=== PATIENT | female | born 1950 | race Caucasian/White ===

== ENCOUNTER 2020-08-07 15:30 | Emergency (ER) | payer MEDICARE, OTHER ==
[~2020-08-07] VITALS: Ht 157.5 cm; Wt 67.1 kg
[2020-08-07 16:30] LABS: BASOPHILS ABSOLUTE AUTO 0.05 K/mm3 (0.00-0.23); BASOPHILS PERCENT AUTO 1 % (0-2); EOSINOPHILS ABSOLUTE AUTO 0.15 K/mm3 (0.00-0.68); EOSINOPHILS PERCENT AUTO 2 % (0-6); Hematocrit 41.5 % (33.0-51.0); Hemoglobin 13.3 g/dL (11.5-16.0); IMMATURE GRAN ABSOLUTE AUTO 0.04 K/mm3 (0.00-0.10); IMMATURE GRAN PERCENT AUTO 1 % (0-1); LYMPHOCYTES ABSOLUTE AUTO 1.96 K/mm3 (0.84-5.20); LYMPHOCYTES PERCENT AUTO 23 % (21-46); MONOCYTES ABSOLUTE AUTO 1.05 K/mm3 (0.16-1.47); MONOCYTES PERCENT AUTO 12 % (4-13); Mean Corpuscular HGB 32.7 pg (26.0-34.0); Mean Corpuscular Volume 102 fL (80-100); Mean Platelet Volume 9.1 fL (9.1-12.4); NEUTROPHILS ABSOLUTE AUTO 5.47 K/mm3 (1.96-9.15); NEUTROPHILS PERCENT AUTO 63 % (41-73); Platelet Count 259 K/mm3 (150-400); RDW Coefficient Variation 12.8 % (11.7-14.2); RDW Standard Deviation 47.9 fL (35.1-46.3); Red Blood Cell Count 4.07 M/mm3 (3.80-5.20); White Blood Cell Count 8.72 K/mm3 (4.00-11.30)
[2020-08-07 16:42] LABS: Anion Gap 6 mmol/L (6-16); Blood Urea Nitrogen 14 mg/dL (8-24); Bun/Creatinine Ratio 26.6 (12.0-20.0); C-REACTIVE PROTEIN, EXT RANGE 0.486 mg/dL (0.000-0.300); CO2, Blood 26 mmol/L (21-32); Calcium, Blood 8.6 mg/dL (8.5-10.1); Chloride, Blood 114 mmol/L (98-108); Creatinine, Blood 0.53 mg/dL (0.40-1.00); Glomerular Filtration Rate >60 (60-); Glucose, Blood 155 mg/dL (70-99); Potassium, Blood 3.8 mmol/L (3.5-5.5); Sodium, Blood 146 mmol/L (136-145)
[2020-08-07] MEDS ORDERED: Percocet 5-3251 EACH PO ×2 (16:58→16:59)
[2020-08-07] MEDS ORDERED: NAPR500 PO (16:58)
== END 2020-08-07 17:20 | disposition home or self-care (01) ==
LOC: ER 15:30
PROVIDERS: Physician Assistant
DX: M17.12 Unilateral primary osteoarthritis, left knee (principal); Z87.891 Personal history of nicotine dependence
CPT/HCPCS: 36415; 80048; 85025; 85651; 86140; 99283; A9270-GY

== ENCOUNTER 2021-07-09 01:44 | Observation (INO) | payer MEDICARE, OTHER ==
[~2021-07-09] VITALS: Ht 157.5 cm; Wt 71.9 kg
[~2021-07-09 01:44] MED LIST: NAPR500 PO; Percocet 5-3251 EACH PO
[2021-07-09] MEDS ORDERED: MYRBETRIQ25 MG (02:02)
[2021-07-09 04:02] LABS: SARS-Cov-2 (COVID-19) PCR, MMC NEGATIVE (NEGATIVE)
[2021-07-09 05:07] LABS: BASOPHILS ABSOLUTE AUTO 0.04 K/mm3 (0.00-0.23); BASOPHILS PERCENT AUTO 1 % (0-2); EOSINOPHILS ABSOLUTE AUTO 0.02 K/mm3 (0.00-0.68); EOSINOPHILS PERCENT AUTO 0 % (0-6); Hematocrit 36.9 % (33.0-51.0); Hemoglobin 12.3 g/dL (11.5-16.0); IMMATURE GRAN ABSOLUTE AUTO 0.03 K/mm3 (0.00-0.10); IMMATURE GRAN PERCENT AUTO 0 % (0-1); LYMPHOCYTES ABSOLUTE AUTO 0.97 K/mm3 (0.84-5.20); LYMPHOCYTES PERCENT AUTO 12 % (21-46); MONOCYTES ABSOLUTE AUTO 0.35 K/mm3 (0.16-1.47); MONOCYTES PERCENT AUTO 4 % (4-13); Mean Corpuscular HGB Conc 33.3 g/dL (31.5-36.5); Mean Corpuscular Volume 99 fL (80-100); Mean Platelet Volume 9.1 fL (9.1-12.4); NEUTROPHILS ABSOLUTE AUTO 6.98 K/mm3 (1.96-9.15); NEUTROPHILS PERCENT AUTO 83 % (41-73); Platelet Count 234 K/mm3 (150-400); RDW Coefficient Variation 12.5 % (11.7-14.2); RDW Standard Deviation 46.1 fL (35.1-46.3); Red Blood Cell Count 3.73 M/mm3 (3.80-5.20); White Blood Cell Count 8.39 K/mm3 (4.00-11.30)
--- NOTE | 2021-07-09 05:33 | NUR ---
PT ADMITTED FROM ER FOR LACERATION TO RT WRIST INVOLIVING TENDON. PT A&O X4. VS WNL. ABLE TO TRANSFER INDEPENDENTLY. PT REPORTS PAIN IS TOLERABLE. RT ARM WRAPPED IN DRESSING WITH SPLINT IN PLACE. PT ABLE TO WIGGLE FINGERS. CAP REFILL WNL. DENIES N/T. PT NPO. IVF INFUSING PER EMAR. PLAN FOR OR LATER TODAY FOR I&D.
[2021-07-09 05:34] LABS: Alanine Aminotransfer (ALT/SGP 16 U/L (12-78); Albumin, Blood 3.5 g/dL (3.4-5.0); Albumin/Globulin Ratio 1.5 (0.8-1.8); Alk Phos 44 U/L (50-136); Anion Gap 8 mmol/L (6-16); Aspartate Aminotrans (AST/SGOT 20 U/L (12-37); Bilirubin, Total 0.4 mg/dL (0.1-1.0); Blood Urea Nitrogen 13 mg/dL (8-24); Bun/Creatinine Ratio 28.5 (12.0-20.0); CO2, Blood 24 mmol/L (21-32); Calcium, Blood 7.3 mg/dL (8.5-10.1); Chloride, Blood 109 mmol/L (98-108); Creatinine, Blood 0.46 mg/dL (0.40-1.00); Globulin, Blood 2.4 g/dL (2.2-4.0); Glomerular Filtration Rate >60 (60-); Glucose, Blood 103 mg/dL (70-99); Potassium, Blood 3.6 mmol/L (3.5-5.5); Sodium, Blood 141 mmol/L (136-145); Total Protein, Blood 5.9 g/dL (6.4-8.2)
--- NOTE | 2021-07-09 14:58 | NUR ---
RECEIVED PT FROM PACU. EDYTA WRAP DRESSING IN PLACE, CDI. PT ABLE TO WIGGLE FINGERS AND GOOD CAP REFILL. PT TO BE TRANSFERRED TO [facility] FOR MORE EXTENSIVE SURGERY. DETERMINED BY SURGEON THAT THE PATIENT NEEDS TO SEE A HAND SURGEON. DR. ANDREWS AT [facility] TO PERFORM SURGERY TODAY. PT TO BE DRIVEN TO [facility] BY HER . TO SHADER AND TONER NEEDED PRESCRIPTIONS WELL.
--- NOTE | 2021-07-09 16:12 | NUR ---
PT ARRIVED. IV DC'D. WRITTEN PRESCRIPTIONS GIVEN TO TO FILL. PT AND LEFT FOR MAXX. REPORT TO BE CALLED TO MAXX BACON.
--- NOTE | 2021-07-13 14:55 | NUR ---
07/13/21 1455 Joanne Mcdonald VERIFICATIONS: EDIT CHART.
== END 2021-07-09 16:02 | disposition short-term general hospital (02) ==
LOC: ER 01:44 → SURS 01:45
PROVIDERS: Emergency Medicine; ADMIT Internal Medicine
DX: S61.511A Laceration without foreign body of right wrist, initial encounter (principal); S65.111A Laceration of radial artery at wrist and hand level of right arm, initial encounter; S64.21XA Injury of radial nerve at wrist and hand level of right arm, initial encounter; S66.821A Laceration of other specified muscles, fascia and tendons at wrist and hand level, right hand, initial encounter; Z20.822 Contact with and (suspected) exposure to COVID-19; Z87.39 Personal history of other diseases of the musculoskeletal system and connective tissue; W26.8XXA Contact with other sharp object(s), not elsewhere classified, initial encounter
CPT/HCPCS: 12002; 36415; 73110; 80053; 85025; 96365-59; 96375-59; 99285-25; G0378; J0171; J0690; J1100; J2405; J2704; J3010; J7030; J7120; U0004

== ENCOUNTER → 2022-12-28 | Outpatient (CLI) | payer MEDICARE, OTHER ==
[~2022-12-28] MED LIST changes: +MYRBETRIQ25 MG
== END | disposition home or self-care (01) ==
LOC: LAB SHORT 11:54
PROVIDERS: Physician Assistant Medical
DX: R11.0 Nausea (principal); R19.7 Diarrhea, unspecified
CPT/HCPCS: 87338

== ENCOUNTER 2023-06-04 10:32 | Day surgery (SDC) | payer MEDICARE, OTHER ==
[~2023-06-04] VITALS: Ht 157.5 cm; Wt 67.3 kg
[2023-06-04] MEDS ORDERED: ACYC400 PO (10:55)
[2023-06-04 12:40] VITALS: BP 157/77
== END 2023-06-04 12:53 | disposition home or self-care (01) ==
LOC: ORSCSDS 10:32
PROVIDERS: Specialist
PROC: 0DB58ZX Excision of Esophagus, Via Natural or Artificial Opening Endoscopic, Diagnostic (ICD-10-PCS; principal; 2023-06-04 12:30)
PROC: 0DBE8ZX Excision of Large Intestine, Via Natural or Artificial Opening Endoscopic, Diagnostic (ICD-10-PCS; principal; 2023-06-04 12:30)
PROC: 0DB98ZX Excision of Duodenum, Via Natural or Artificial Opening Endoscopic, Diagnostic (ICD-10-PCS; principal; 2023-06-04 12:30)
PROC: 0DBC8ZX Excision of Ileocecal Valve, Via Natural or Artificial Opening Endoscopic, Diagnostic (ICD-10-PCS; principal; 2023-06-04 12:30)
PROC: 0DBP8ZX Excision of Rectum, Via Natural or Artificial Opening Endoscopic, Diagnostic (ICD-10-PCS; principal; 2023-06-04 12:30)
DX: R19.4 Change in bowel habit (principal); R11.0 Nausea; R19.5 Other fecal abnormalities; K62.5 Hemorrhage of anus and rectum; R14.0 Abdominal distension (gaseous); K64.8 Other hemorrhoids; K57.30 Diverticulosis of large intestine without perforation or abscess without bleeding; K52.9 Noninfective gastroenteritis and colitis, unspecified; Z98.84 Bariatric surgery status; Z79.899 Other long term (current) drug therapy
CPT/HCPCS: 88305; J2704; J7120

== ENCOUNTER 2025-05-29 09:32 | Emergency (ER) | payer MEDICARE, OTHER ==
[~2025-05-29] VITALS: Ht 157.5 cm; Wt 58.5 kg
[~2025-05-29 09:32] MED LIST changes: +ACYC400 PO
[2025-05-29 11:08] VITALS: BP 124/67
== END 2025-05-29 11:15 | disposition home or self-care (01) ==
LOC: ER 09:32
DX: S52.201A Unspecified fracture of shaft of right ulna, initial encounter for closed fracture (principal); X58.XXXA Exposure to other specified factors, initial encounter; Z79.899 Other long term (current) drug therapy; Z91.041 Radiographic dye allergy status
CPT/HCPCS: 29105; 73090; 99283-25; A9270

== ENCOUNTER 2025-06-03 10:37 | Day surgery (SDC) | payer OTHER, MEDICARE ==
[~2025-06-03] VITALS: Ht 157.5 cm; Wt 59.4 kg
[~2025-06-03 10:37] MED LIST changes: +FentaNYL Citrate 50 MCG/ML 2 ML Injection ONE; +Midazolam HCl 1MG / ML 2ML Vial ONE
[2025-06-03] MEDS ORDERED: CeFAZolin Sodium 2,000 MG VIAL ONE (10:51)
[2025-06-03] MEDS ORDERED: FentaNYL Citrate 50 MCG/ML 2 ML Injection ONE (11:41)
[2025-06-03] MEDS ORDERED: Bupivacaine 0.5% HCl 5 MG/ML 30MLVIAL ONE (11:44)
--- NOTE | 2025-06-03 12:31 | NUR ---
06/03/25 1231 Masha Olivo NERVE BLOCK DONE BY DR MEADE. PT TOLERATED BLOCK WELL. TIME OUT DONE PRIOR TO BLOCK STARTING.
[2025-06-03] MEDS ORDERED: Dexamethasone Sod Phos 10 MG/ML 1ML VIAL ONE (13:07)
[2025-06-03] MEDS ORDERED: Ondansetron HCl 2 MG / ML 2ML Vial ONE (13:07)
--- NOTE | 2025-06-03 14:16 | NUR ---
06/03/25 Lorena6 Yoselyn Nam TO STEPDOWN, REPORT TO ARLEEN PARRISH AFTER ARRIVAL FOR CHANGE OF CAREGIVER.
[2025-06-03 14:38] VITALS: BP 176/77
== END 2025-06-03 14:50 | disposition home or self-care (01) ==
LOC: ORSCSDS 10:37
PROVIDERS: Orthopaedic Surgery
PROC: 0PSK04Z Reposition Right Ulna with Internal Fixation Device, Open Approach (ICD-10-PCS; principal; 2025-06-03 12:00)
DX: S52.601A Unspecified fracture of lower end of right ulna, initial encounter for closed fracture (principal); W01.0XXA Fall on same level from slipping, tripping and stumbling without subsequent striking against object, initial encounter; I10 Essential (primary) hypertension; Z87.891 Personal history of nicotine dependence; Z93.1 Gastrostomy status; Z79.899 Other long term (current) drug therapy
CPT/HCPCS: C1713; J0690; J1100; J2250; J2405; J2704; J3010; J7120